=== PATIENT | male | born 1945 ===

== ENCOUNTER 2019-05-27 13:13 | Emergency (ER) | payer OTHER ==
[~2019-05-27] VITALS: Ht 160 cm; Wt 104.3 kg
[2019-05-27] MEDS ORDERED: ZESTRIL10 M1 PO (13:40)
[2019-05-27] MEDS ORDERED: CARVEDILOL ER40 MG PO (13:40)
[2019-05-27] MEDS ORDERED: ZIPRASIDONE HCL80 MG PO (13:41)
[2019-05-27] MEDS ORDERED: SIMVASTATIN80 MG PO (13:41)
[2019-05-27] MEDS ORDERED: ATIVAN1 M1 PO (13:41)
[2019-05-27] MEDS ORDERED: LASIX20 MG PO (13:41)
[2019-05-27] MEDS ORDERED: HUMALOG100 UNIT/1 (13:42)
== END 2019-05-27 19:23 | disposition home or self-care (01) ==
LOC: ER 13:13
DX: R42 Dizziness and giddiness (principal); M54.89 Other dorsalgia; F20.89 Other schizophrenia

== ENCOUNTER 2020-11-05 18:01 | Inpatient (IN) | payer OTHER ==
[~2020-11-05] VITALS: Ht 182.9 cm; Wt 117.9 kg
[~2020-11-05 18:01] MED LIST: ATIVAN1 M1 PO; CARVEDILOL ER40 MG PO; HUMALOG100 UNIT/1; LASIX20 MG PO; SIMVASTATIN80 MG PO; ZESTRIL10 M1 PO; ZIPRASIDONE HCL80 MG PO
== END 2020-11-06 07:14 | disposition expired | DRG 871 ==
LOC: ER 18:01 → ICU-2 23:37
PROVIDERS: ADMIT Internal Medicine; ATTEND Internal Medicine
PROC: 0BH17EZ Insertion of Endotracheal Airway into Trachea, Via Natural or Artificial Opening (ICD-10-PCS; principal; 2020-11-05)
PROC: 5A1935Z Respiratory Ventilation, Less than 24 Consecutive Hours (ICD-10-PCS; 2020-11-05)
DX: A41.9 Sepsis, unspecified organism (principal); J96.00 Acute respiratory failure, unspecified whether with hypoxia or hypercapnia; R65.21 Severe sepsis with septic shock; N17.8 Other acute kidney failure; N39.0 Urinary tract infection, site not specified; E87.2 Acidosis; Z20.822 Contact with and (suspected) exposure to COVID-19; N13.9 Obstructive and reflux uropathy, unspecified; Z95.0 Presence of cardiac pacemaker